=== PATIENT | female | born 1990 | race Caucasian/White ===

== ENCOUNTER 2024-09-08 06:15 | Day surgery (SDC) | payer OTHER ==
[2024-09-06 14:44] VITALS: BMI 36.6
[2024-09-08] MEDS ORDERED: Ferric Subsulfate 8 ML TOPICAL SOLN ONE (07:06)
[2024-09-08] MEDS ORDERED: fentaNYL 50 mcg/mL 1 mL Vial ONE ×4 (08:02→09:15)
[2024-09-08] MEDS ORDERED: PROPOFOL 20 ML ONE ×2 (08:02→08:22)
[2024-09-08] MEDS ORDERED: SUCCINYLCHOLINE/SOD CL,ISO/PF 200 MG/10 ML SYRINGE FS ONE (08:04)
[2024-09-08] MEDS ORDERED: Lidocaine 1% PF 5 ML VIAL ONE (08:04)
[2024-09-08] MEDS ORDERED: Ondansetron PF 4 MG/2 ML Vial ONE ×2 (08:05→09:48)
[2024-09-08] MEDS ORDERED: Dexamethasone 20 MG/5 ML VIAL ONE (08:05)
[2024-09-08] MEDS ORDERED: Sodium Chloride 0.9% 10 ML ONE (08:06)
[2024-09-08] MEDS ORDERED: Dexmedetomidine 200 MCG/2 ML VIAL ONE (08:06)
[2024-09-08] MEDS ORDERED: Hydrocodone-Acetamin 15 ML UDCUP ONE (09:46)
== END 2024-09-08 10:40 | disposition home or self-care (01) ==
LOC: CSHSDC 06:15
PROVIDERS: ATTEND Specialist
PROC: 0CTPXZZ Resection of Tonsils, External Approach (ICD-10-PCS; principal; 2024-09-08)
DX: J35.01 Chronic tonsillitis (principal); G47.33 Obstructive sleep apnea (adult) (pediatric); I10 Essential (primary) hypertension; F32.A Depression, unspecified; F41.9 Anxiety disorder, unspecified; G43.909 Migraine, unspecified, not intractable, without status migrainosus; E07.9 Disorder of thyroid, unspecified; Z79.899 Other long term (current) drug therapy; Z98.890 Other specified postprocedural states; J30.89 Other allergic rhinitis
CPT/HCPCS: 88304; J1100; J2405; J2704; J3010